=== PATIENT | male | born 1945 | race Caucasian/White ===

== ENCOUNTER 2022-10-20 12:55 | Outpatient (CLI) | payer MEDICARE | END 2022-10-20 12:56 | disposition home or self-care (01) | LOC: CSHCT 12:55 | PROVIDERS: ATTEND Neurological Surgery | DX: M48.061 Spinal stenosis, lumbar region without neurogenic claudication (principal); M47.816 Spondylosis without myelopathy or radiculopathy, lumbar region | CPT/HCPCS: 72131 ==

== ENCOUNTER 2023-05-28 08:23 | Outpatient (CLI) | payer MEDICARE | END 2023-05-28 08:24 | disposition home or self-care (01) | LOC: CSHCT 08:23 | PROVIDERS: ATTEND Neurological Surgery | DX: M47.22 Other spondylosis with radiculopathy, cervical region (principal); M43.12 Spondylolisthesis, cervical region; J32.9 Chronic sinusitis, unspecified | CPT/HCPCS: 72125 ==

== ENCOUNTER 2024-11-28 13:41 | Outpatient (CLI) | payer MEDICARE | END 2024-11-28 13:42 | disposition home or self-care (01) | LOC: CSHCP 13:41 | PROVIDERS: ATTEND Internal Medicine | DX: J44.9 Chronic obstructive pulmonary disease, unspecified (principal) | CPT/HCPCS: 94060; 94664; 94726; 94729; 94760 ==